=== PATIENT | male | born 1930 | race African-American/Black ===

== ENCOUNTER → 2017-11-01 | Outpatient (CLI) | payer MEDICARE ==
[~2017-11-01] VITALS: Ht 165.1 cm; Wt 51.5 kg
[~2017-11-01] MED LIST: ALLO300 PO; ASPI-556 PO; DONE10TA8 PO; LISI-660 PO; SIMV-261 PO
[2017-11-01 10:45] VITALS: BP 98/58
== END | disposition home or self-care (01) ==
LOC: SRCNTR 10:13
PROVIDERS: ATTEND Internal Medicine Cardiovascular Disease
DX: I11.9 Hypertensive heart disease without heart failure (principal); E78.5 Hyperlipidemia, unspecified; M10.9 Gout, unspecified; F32.9 Major depressive disorder, single episode, unspecified; R63.4 Abnormal weight loss; J30.9 Allergic rhinitis, unspecified
CPT/HCPCS: G0463